=== PATIENT | female | born 1985 | race Caucasian/White ===

== ENCOUNTER 2020-05-16 08:44 | Emergency (ER) | payer OTHER, SELFPAY ==
--- NOTE | 2020-05-16 08:47 | DI.RAD.S_ITS ---
PROCEDURE: XR CHEST 1V INDICATIONS: chest pain TECHNIQUE: One view of the chest was acquired. COMPARISON: [facility], , CHEST 2 VIEW, 05/14/2010, 18:32. FINDINGS: Surgical changes and devices: None. Lungs and pleura: Lungs are clear. No pleural effusions or pneumothorax. Mediastinum: Mediastinal contours appear normal. Heart size is normal. Bones and chest wall: No suspicious bony lesions. Overlying soft tissues appear unremarkable. IMPRESSION: No acute pulmonary process. Dictated by: Svetlana Harding M.D. on 05/16/2020 at 9:31 Approved by: Svetlana Harding M.D. on 05/16/2020 at 9:31
[2020-05-16 08:52] VITALS: BP 127/96; PULSE 93; RESP 16; RESP 18; TEMP 35.9; O2SAT 100; BMI 23.8
[2020-05-16 09:00] VITALS: BP 124/77; PULSE 88; RESP 13; O2SAT 99
--- NOTE | 2020-05-16 09:03 | ED_ITS ---
HPI - Chest Pain General Chief Complaint: Chest Pain Stated Complaint: upper left chest tightening/hx of irreg. ht rt x3d Time Seen by Provider: 05/16/20 08:53 Source: patient Mode of arrival: Ambulatory Limitations: no limitations History of Present Illness HPI narrative: Patient is a 34-year-old female with history of irregular heartbeat presenting today with 3 days of chest discomfort and palpitations. She says it has been fairly consistent and she feels short of breath both at rest and with exertion. She says that she is prone to blood clots but has never actually hand when. She says they checked her when she was . She denies any fever chills cough nausea vomiting or abdominal pain. MD complaint: chest pain Onset (ago): day(s) (3) Duration: constant Severity: mild Relieving factors: nothing Exacerbating factors: nothing Related Data Home Medications Medication Instructions Recorded Confirmed cyanocobalamin (vitamin B-12) 500 mcg PO #0 08/05/11 [Vitamin B-12] levonorgestrel [Mirena] 52 mg INTRAU #0 ea 11/01/15 pyridoxine (vitamin B6) 100 mg PO QDAY #0 03/13/17 Previous Rx's Medication Instructions Recorded azithromycin [Zithromax] 250 mg OR QDAY #6 tab 06/12/17 Allergies Allergy/AdvReac Type Severity Reaction Status Date / Time Sulfa (Sulfonamide Allergy Mild RASH Unverified 06/24/17 12:53 Antibiotics) [SULFA (SULFONAMIDE ANTIBIOTICS)] Penicillins [PENICILLINS] Allergy Unknown RASH Unverified 06/24/17 12:53 venom-honey bee Allergy Unknown Unverified 06/24/17 12:53 [BEE VENOM (HONEY BEE)] Review of Systems Review of Systems Narrative: GENERAL: Denies chills, fatigue, malaise, fever, sweats, travel HEENT: Denies sinus pain, ear pain, sore throat, difficulty swallowing, neck pain RESPIRATORY: Denies dyspnea, cough, wheezing, hemoptysis, sputum. CARDIOVASCULAR: See HPI GASTROINTESTINAL: Denies nausea, vomiting, abdominal pain, diarrhea, constipation, melena. : Denies dysuria, frequency, incontinence, hematuria, urinary retention, flank pain. MUSCULOSKELETAL: Denies weakness, joint pain, or bony pain SKIN: No rash, no erythema, no pruritus NEUROLOGIC: Denies weakness, dizziness, headache, numbness, change in speech, confusion PSYCHIATRIC: No concerning psychosocial issues. 12 point review of systems is negative except for those stated above and HPI Patient History Medical History Palpitation Surgical History Status post appendectomy Social History Smoking Status: Current some day smoker Smoking Status: Current some day smoker alcohol intake frequency: 0-2 drinks per day Substance Use Type: marijuana Exam Initial Vital Signs Initial Vital Signs: Vital Signs Temperature 96.6 F L 05/16/20 08:52 Pulse Rate 93 H 05/16/20 08:52 Respiratory Rate 18 05/16/20 08:52 Blood Pressure 127/96 H 05/16/20 08:52 Pulse Oximetry 100 05/16/20 08:52 GENERAL: Well-appearing, well-nourished and in no acute distress. HEENT: Head atraumatic,EOMI, pupils reactive, face symmetric, moist mucous membranes CARDIOVASCULAR: Regular rate and rhythm without murmurs, rubs or gallops. RESPIRATORY: Breath sounds equal bilaterally, no wheezes rales or rhonchi. ABDOMEN: Soft, nontender. Normoactive bowel sounds all 4 quadrants. No guarding or rebound. EXTREMITIES: Normal range of motion, no clubbing or edema. Neurovascularly intact NEUROLOGICAL: Alert and oriented x4.Normal gait and speech. Cranial nerves II through XII grossly intact. SKIN: Warm, dry, no laceration, no petechiae, no rashes or lesions. Scores PERC Score Age greater than or equal to 50 years: No Heart rate greater than or equal to 100 bpm: No Room Air O2 Sat less than 95%: No Unilateral leg swelling: No Recent trauma or surgery: No Hemoptysis: No Prior PE or DVT: No Hormone Use: Yes Total PERC Score: 1 Course Orders Ordered: ED Orders 05/16/20 08:47 XR chest 1V Stat 05/16/20 08:50 EKG-12 Lead Stat 05/16/20 08:55 Complete Blood Count AUTO DIFF Stat Comprehensive Metabolic Panel Stat D Dimer Stat Lipase Stat Partial Thromboplastin Time Stat Prothrombin Time INR Stat Troponin & CK Cardiac Panel Stat Vital Signs Vital signs: Vital Signs - 8 hr 05/16/20 08:52 05/16/20 09:00 05/16/20 09:25 Temperature 96.6 F L Pulse Rate 93 H 88 86 Respiratory Rate 16 13 19 Blood Pressure 127/96 H 124/77 116/76 Pulse Oximetry 100 99 100 05/16/20 09:30 Temperature Pulse Rate 84 Respiratory Rate 17 Blood Pressure 115/73 Pulse Oximetry 99 MDM - Chest Pain Lab Data Attestation: I reviewed the patient's lab results. Result diagrams: 05/16/20 08:55 05/16/20 08:55 Labs: Lab Results 05/16/20 05/16/20 05/16/20 Range/Units 08:55 08:55 08:55 WBC 7.9 (4.5-11.0) X10^3/uL RBC 4.39 (4.0-5.2) X10^6/uL Hgb 13.9 (12.0-16.0) g/dL Hct 41.0 (36-46) % MCV 93.5 (80-100) fL MCH 31.7 (26-34) PG MCHC 33.9 (30-36) % RDW 12.3 (11.6-14.8) % Plt Count 189 (150-400) X10^3/uL Neut % (Auto) 59.6 (50-75) % Lymph % (Auto) 28.5 (25-40) % [place] % (Auto) 8.9 (3-14) % Eos % (Auto) 1.7 L (2-4) % Baso % (Auto) 1.3 (0-2) % Neut # (Auto) 4700 (8504-7728) /uL Lymph # (Auto) 2300 (2577-7991) /uL [place] # (Auto) 700 (0-900) /uL Eos # (Auto) 100 (0-450) /uL Baso # (Auto) 100 (0-100) /uL PT 11.7 (10.1-12.7) SECONDS INR 1.0 (0.9-1.3) APTT 32 (26.4-36.2) SECONDS D-Dimer (<230) ng/mL Sodium 139 (137-145) mmol/L Potassium 3.8 (3.4-5.1) mmol/L Chloride 103 (98-107) mmol/L Carbon Dioxide 26 (22-32) mmol/L BUN 14 (7-17) mg/dL Creatinine 0.56 (0.52-1.04) mg/dL Estimated GFR > 60.0 (>60) mL/min BUN/Creatinine Ratio 25.0 H (6-22) Glucose 88 (70-100) mg/dL Calcium 9.2 (8.4-10.2) mg/dL Total Bilirubin 1.1 (0.2-1.3) mg/dL AST 34 (14-36) IU/L ALT 31 (<35) IU/L Alkaline Phosphatase 60 (38-126) U/L Total Creatine Kinase 63 (30-135) U/L CK-MB (CK-2) TNP CK-MB (CK-2) Rel Index TNP Troponin I < 0.012 (0.01-0.034) ng/mL Total Protein 8.1 (6.3-8.2) g/dL Albumin 5.0 (3.5-5.0) g/dL Globulin 3.1 (1.7-4.1) g/dL Albumin/Globulin Ratio 1.6 (1.0-2.8) Lipase 76 (23-300) U/L // Range/Units 08:55 WBC (4.5-11.0) X10^3/uL RBC (4.0-5.2) X10^6/uL Hgb (12.0-16.0) g/dL Hct (36-46) % MCV (80-100) fL MCH (26-34) PG MCHC (30-36) % RDW (11.6-14.8) % Plt Count (150-400) X10^3/uL Neut % (Auto) (50-75) % Lymph % (Auto) (25-40) % [place] % (Auto) (3-14) % Eos % (Auto) (2-4) % Baso % (Auto) (0-2) % Neut # (Auto) (6609-2435) /uL Lymph # (Auto) (8988-4077) /uL [place] # (Auto) (0-900) /uL Eos # (Auto) (0-450) /uL Baso # (Auto) (0-100) /uL PT (10.1-12.7) SECONDS INR (0.9-1.3) APTT (26.4-36.2) SECONDS D-Dimer < 200 (<230) ng/mL Sodium (137-145) mmol/L Potassium (3.4-5.1) mmol/L Chloride (98-107) mmol/L Carbon Dioxide (22-32) mmol/L BUN (7-17) mg/dL Creatinine (0.52-1.04) mg/dL Estimated GFR (>60) mL/min BUN/Creatinine Ratio (6-22) Glucose (70-100) mg/dL Calcium (8.4-10.2) mg/dL Total Bilirubin (0.2-1.3) mg/dL AST (14-36) IU/L ALT (<35) IU/L Alkaline Phosphatase (38-126) U/L Total Creatine Kinase (30-135) U/L CK-MB (CK-2) CK-MB (CK-2) Rel Index Troponin I (0.01-0.034) ng/mL Total Protein (6.3-8.2) g/dL Albumin (3.5-5.0) g/dL Globulin (1.7-4.1) g/dL Albumin/Globulin Ratio (1.0-2.8) Lipase (23-300) U/L Point of Care Testing Test Results Negative Urine Dip Bedside Urine Glucose Negative Bedside Urine Bilirubin - Negative Bedside Urine Ketone - Negative Urine Specific [place] 1.030 Bedside Urine Occult Blood - Negative Bedside Urine pH 6.0 Bedside Urine Protein - Negative Bedside Urine Urobilinogen - Negative Bedside Urine Nitrite - Negative Bedside Urine Leukocytes - Negative Esterase Imaging Data Chest x-ray: Radiologist's Impression: PROCEDURE: XR CHEST 1V INDICATIONS: chest pain TECHNIQUE: One view of the chest was acquired. COMPARISON: [facility], , CHEST 2 VIEW, 05/14/2010, 18:32. FINDINGS: Surgical changes and devices: None. Lungs and pleura: Lungs are clear. No pleural effusions or pneumothorax. Mediastinum: Mediastinal contours appear normal. Heart size is normal. Bones and chest wall: No suspicious bony lesions. Overlying soft tissues appear unremarkable. IMPRESSION: No acute pulmonary process. Dictated by: Svetlana Harding M.D. on 05/16/2020 at 9:31 Approved by: Svetlana Harding M.D. on 05/16/2020 at 9:31 ECG Data Attestation: I personally reviewed and interpreted this ECG as follows: Prior ECG tracings: available for review Interpretation: Normal sinus rhythm rate 82 p.r. interval 182 QRS [address] changes similar to previous EKG MDM Narrative Medical decision making narrative: Patient does have occasional PVC which is likely the cause of her palpitations. Her D-dimer is negative and has a low PERC score at this time unlikely to be a PE. Discharge Plan Departure Patient Disposition: Home Clinical Impression: Premature ventricular contraction Instructions: Premature Ventricular Beats Activity Restrictions/Additional Instructions: *You have been diagnosed with PVCs *What to do: Your heart occasionally skips a beat which is likely the cause of the pounding feeling in her chest. These typically do not cause any problems. Things that exacerbate them are caffeine alcohol and dehydration so please be sure to stay plant dehydrated. You may need a Holter monitor which a primary care provider can order for you, distal monitor how frequently you are having them *Continue to take medications as directed *Follow up with your primary care provider in 2-3 days *Return to ER if you should have increasing chest pain, palpitations, dizziness, lightheadedness [or] any new, worsening or concerning symptoms Prescriptions: No Action cyanocobalamin (vitamin B-12) [Vitamin B-12] 500 MCG tablet 500 mcg PO Qty: 0 RF: 0 levonorgestrel [Mirena] 1 EACH intrauterine device 52 mg INTRAU Qty: 0 RF: 0 pyridoxine (vitamin B6) 100 MG tablet 100 mg PO QDAY Qty: 0 RF: 0 azithromycin [Zithromax] 250 MG tablet 250 mg OR QDAY Qty: 6 RF: 0 Referrals: [facility] [Outside]
[2020-05-16 09:10] LABS: Prothrombin Time 11.7 SECONDS (10.1-12.7)
[2020-05-16 09:13] LABS: PTT Partial Thromboplastin Tim 32 SECONDS (26.4-36.2)
[2020-05-16 09:14] LABS: Add Manual Diff / Slide Review NO; Basophils Absolute Auto 100 /uL (0-100); Basophils Percent Auto 1.3 % (0-2); Eosinophils Absolute Auto 100 /uL (0-450); Eosinophils Percent Auto 1.7 % (2-4); Hemoglobin 13.9 g/dL (12.0-16.0); Lymphocytes Absolute Auto 2300 /uL (1100-4500); Lymphocytes Percent Auto 28.5 % (25-40); Mean Corpuscular HGB Conc 33.9 % (30-36); Mean Corpuscular Hemoglobin 31.7 PG (26-34); Mean Corpuscular Volume 93.5 fL (80-100); Monocytes Absolute Auto 700 /uL (0-900); Monocytes Percent Auto 8.9 % (3-14); Neutrophils Absolute Auto 4700 /uL (1500-7000); Neutrophils Percent Auto 59.6 % (50-75); Platelet Count 189 X10^3/uL (150-400); Red Blood Cell Count 4.39 X10^6/uL (4.0-5.2); Red Cell Distribution Width 12.3 % (11.6-14.8); White Blood Cell Count 7.9 X10^3/uL (4.5-11.0)
[2020-05-16 09:16] LABS: Alanine Aminotransferase 31 IU/L (<35); Albumin Globulin Ratio 1.6 (1.0-2.8); Alkaline Phosphatase 60 U/L (38-126); Aspartate Aminotransferase 34 IU/L (14-36); Bilirubin Total 1.1 mg/dL (0.2-1.3); Blood Urea Nitrogen 14 mg/dL (7-17); Calcium 9.2 mg/dL (8.4-10.2); Carbon Dioxide 26 mmol/L (22-32); Chloride 103 mmol/L (98-107); Creatine Kinase 63 U/L (30-135); Estimated Glomerular Filt Rate > 60.0 mL/min (>60); Globulin 3.1 g/dL (1.7-4.1); Glucose 88 mg/dL (70-100); HEMOLYSIS < 15 (0-50); Lipase 76 U/L (23-300); Potassium 3.8 mmol/L (3.4-5.1); Sodium 139 mmol/L (137-145); Total Protein 8.1 g/dL (6.3-8.2)
[2020-05-16 09:23] LABS: D Dimer < 200 ng/mL (<230)
[2020-05-16 09:25] VITALS: BP 116/76; PULSE 86; RESP 19; O2SAT 100
[2020-05-16 09:27] LABS: Troponin I < 0.012 ng/mL (0.01-0.034)
[2020-05-16 09:30] VITALS: BP 115/73; PULSE 84; RESP 17; O2SAT 99
[2020-05-16 09:57] VITALS: BP 106/70; PULSE 87; RESP 14; TEMP 36.8; O2SAT 100
[2020-05-17 16:35] LABS: Cholesterol 196 mg/dL (140-199); HDL Cholesterol 79 mg/dL (40-60); LDL Cholesterol Calculated 105 mg/dL (<100); Triglycerides 58 mg/dL (35-150)
== END 2020-05-16 09:57 | disposition home or self-care (01) ==
PROVIDERS: Student in an Organized Health Care Education/Training Program; Emergency Provider Emergency Medicine
DX: I49.3 Ventricular premature depolarization (principal); R00.2 Palpitations; Z13.220 Encounter for screening for lipoid disorders
CPT/HCPCS: 36415; 71045; 80053; 80061; 81003; 81025; 82550; 83690; 84484; 85025; 85379; 85610; 85730; 93005; 99283; 99284

== ENCOUNTER → 2020-05-21 15:16 | Outpatient (CLI) | payer OTHER, SELFPAY ==
--- NOTE | 2020-05-31 08:11 | P.HOLT.S_ITS ---
[employer] Report Referral & Results Date Patient Seen: 05/21/20 Requesting provider: Randall Zamora Indication: Palpitations Duration of monitoring (days): 3 Diary information: There were 9 patient triggered events and 11 patient diary entries These patient events were associated with (within 45 seconds) sinus rhythm and PVCs Data: Minimum heart rate identified was 49 beats per minute at 03:44 on 05/22/2020 Maximum heart rate was 176 beats per minute at 06:24 on 05/22/2020 Less than 1% of identified beats were ventricular ectopic in origin. There were no computer identified supraventricular ectopic beats at all Impression: Patient's sense of palpitations appears to be related to isolated and rare PVCs No other dysrhythmias identified on this study
== END ==
PROVIDERS: PCP Student in an Organized Health Care Education/Training Program; Referring Provider Student in an Organized Health Care Education/Training Program; Visit Provider Student in an Organized Health Care Education/Training Program
DX: R00.2 Palpitations (principal)
CPT/HCPCS: 93242; 93244

== ENCOUNTER → 2020-06-15 07:43 | Outpatient (CLI) | payer OTHER, SELFPAY ==
--- NOTE | 2020-06-15 07:45 | DI.ECHO.S_ITS ---
[facility] +---------+ [facility] +---------+ : : [address] [place] : : : : [id number] : : : : Phone: [phone] Echocardiogram Report + + :Name: FANNIE COMBS Study Date: 06/15/2020 Height: 65 in : :[facility] ReadingLocation: Weight: 142 lb : : Gender: Female BSA: 1.7 m2 : :: 1985 Age: 34 yrs BP: 122/81 mmHg: :Reason For Study: Palpitations : :Ordering Physician: JAYDA : :SILVIA Performed By: Raimundo Chang : :Referring: SILVIA MONTELONGO : + + Interpretation Summary 1) Normal left ventricular thickness, size, wall motion, and systolic function (EF 55-60%). 2) Normal right ventricular size and function. 3) No significant valvular abnormalities. 4) No prior Echo available for comparison. Procedure: A two-dimensional transthoracic echocardiogram with color flow and Doppler was performed. The study quality was technically adequate. There is no prior echocardiogram noted for this patient. The patient was in sinus rhythm with heart rates between 66-81 bpm during the exam. Left Ventricle: The left ventricle is normal in size and wall thickness. Left ventricular systolic function is normal. The ejection fraction is estimated to be 55-60%. There are no focal wall motion abnormalities. Diastolic parameters suggest probable normal left ventricular diastolic function and normal filling pressures. Right Ventricle: The right ventricle is normal in size and function. Atria: Both atria are normal in size. There is no Doppler evidence for an interatrial shunt. Mitral Valve: The mitral valve is normal in structure and function. There is no mitral regurgitation noted. Aortic Valve: The aortic valve is normal in structure and function. No aortic regurgitation is present. Tricuspid Valve: The tricuspid valve is normal in structure and function. There is a trace or physiologic amount of tricuspid regurgitation. Pulmonary artery pressures cannot be estimated because of the lack of a measurable TR jet velocity but the IVC suggests a CVP of around 3 mmHg. Pulmonic Valve: The pulmonic valve is normal in structure and function. There is no pulmonic valvular regurgitation. Great Vessels: The aortic root is normal size. The ascending aorta could not be visualized. The IVC is of normal diameter and collapses greater than 50% with a sniff. This suggests a low right atrial pressure of 3 mm Hg. Pericardium/ Pleura There is no pericardial effusion. There is no pleural effusion. MMode/2D Measurements & Calculations LVIDd: 4.4 cm LVOT diam: 1.9 cm LVIDs: 3.0 cm Ao root diam: 2.6 cm FS: 32.3 % IVSd: 0.70 cm LVPWd: 0.76 cm LV umanzor. diameter/BSA (cm/m^2): 2.6 LV sys. diameter/BSA (cm/m^2): 1.7 LA A2 area: 13.7 cm2 RA long axis: 3.8 cm LA A4 area: 12.8 cm2 RA area: 9.9 cm2 LA length (vol): 4.4 cm RA vol: 22.1 ml LA vol: 34.1 ml RA : 12.9 ml/m2 LA vol index: 19.9 ml/m2 IVC diam: 2.0 cm RVD1 (basal): 2.6 cm Doppler Measurements & Calculations Ao V2 max: 127.9 cm/sec LVOT Max [place]: 121.2 cm/sec Ao V2 mean: 87.5 cm/sec LV V1 max P.9 mmHg Ao max P.5 mmHg LV V1 VTI: 23.4 cm Ao mean P.5 mmHg LIZANDRO(I,D): 2.5 cm2 Ao V2 VTI: 26.8 cm LIZANDRO(V,D): 2.7 cm2 sev ratio: 0.87 LIZANDRO indexed to BSA (cm^2/m^2): 1.5 MV E max benton: 81.0 cm/sec PA V2 max: 116.3 cm/sec MV A max benton: 73.4 cm/sec PA V2 mean: 82.7 cm/sec MV E/A: 1.1 PA mean P.1 mmHg MV dec time: 0.19 sec PA pr(Accel): 26.1 mmHg SV(LVOT): 66.9 ml Reading Physician:11:16 AM
== END ==
PROVIDERS: PCP Student in an Organized Health Care Education/Training Program; Referring Provider Student in an Organized Health Care Education/Training Program; Visit Provider Student in an Organized Health Care Education/Training Program
DX: R00.2 Palpitations (principal); R01.1 Cardiac murmur, unspecified
CPT/HCPCS: 93306